=== PATIENT | male | born 1940 | race Caucasian/White ===

== ENCOUNTER 2021-09-24 13:49 | Inpatient (IN) | payer OTHER ==
[~2021-09-24] VITALS: Ht 182.9 cm; Wt 74.8 kg
[2021-09-24 15:01] LABS: HEMATOCRIT 38.1 % (36.7-47.1); MEAN CORPUSCULAR HEMOGLOBIN 30.1 uug (23.8-33.4); MEAN CORPUSCULAR VOLUME 87.6 fL (73.0-96.2); PLATELET COUNT (AUTO) 215 K/uL (152-348)
[2021-09-24 15:27] LABS: CREATININE 1.1 mg/dL (0.6-1.3); POTASSIUM 3.5 mmol/L (3.5-5.1)
[2021-09-24 15:41] LABS: BILIRUBIN,DIRECT 0.5 mg/dL (0.0-0.2); BILIRUBIN,TOTAL 1.4 mg/dL (0.2-1.0)
[2021-09-24 16:56] LABS: *BILIRUBIN,URIN NEGATIVE (NEGATIVE); *BLOOD, URINE 2+ (NEGATIVE); *CLARITY,URINE CLEAR (CLEAR); *COLOR,URINE YELLOW (YELLOW); *KETONES,URINE TRACE (NEGATIVE); *UROBILINOGEN,URINE 0.2 E.U./dl (NORMAL); LEUKOCYTE ESTERASE ,URINE NEGATIVE (NEGATIVE); NITRITE, URINE NEGATIVE (NEGATIVE); PH,URINE 5.5 (5.0-8.0); UGLUCOSE 2+ (NEGATIVE)
[2021-09-24] MEDS ORDERED: VANCOMYCIN IV 1,000 MG in IV DEXTROSE 5% 250 ML IV ONE (17:00)
[2021-09-24] MEDS ORDERED: VANCOMYCIN IV 200 ML ONE (17:07)
[2021-09-24 18:46] LABS: BACTERIA,URINE NONE SEEN /HPF (NONE SEEN); RBC,URINE 0-3 /HPF (0-3); SQUAMOUS EPITHELIAL CELL,UR FEW /HPF (NONE SEEN); WBC,URINE 0-3 /HPF (0-3)
[2021-09-24] MEDS ORDERED: LORAZEPAM 2 MG/1 ML VIAL ONE (19:43)
[2021-09-24] MEDS ORDERED: KETAMINE HCL 500 MG/10 ML INJ IV ONE ×2 (19:45→20:15)
[2021-09-24] MEDS ORDERED: LORAZEPAM 2 MG/1 ML VIAL IV ONE (19:45)
[2021-09-24] MEDS ORDERED: KETAMINE HCL 500 MG/10 ML INJ ONE ×2 (20:09→20:25)
[2021-09-24] MEDS ORDERED: IV NORMAL SALINE 500 ML IV ONE (21:45)
[2021-09-24] MEDS ORDERED: PIPERACILLIN SODIUM/TAZOBACTAM 3.375 G in IV DEXTROSE 5% 50 ML IV ONE (21:45)
[2021-09-24] MEDS ORDERED: ACETAMINOPHEN 650 MG SUPP.RECT RC PRN (22:00)
[2021-09-24] MEDS ORDERED: PIPERACILLIN/TAZOBACTAM/D5W 50 ML IV ONE (22:06)
[2021-09-25 04:00] VITALS: BP 143/57
[2021-09-25] MEDS ORDERED: PIPERACILLIN/TAZOBACTAM/D5W 50 ML IV ONE (04:31)
[2021-09-25 04:58] VITALS: BP 143/57
[2021-09-25] MEDS ORDERED: PIPERACILLIN SODIUM/TAZOBACTAM 3.375 G in IV DEXTROSE 5% 50 ML IV SCH (06:00)
[2021-09-25] MEDS: IV D5W-0.45% NS +20 KCL 1,000 ML IV PRN (06:48)
[2021-09-25 06:52] LABS: HEMATOCRIT 36.7 % (36.7-47.1); MEAN CORPUSCULAR VOLUME 88.5 fL (73.0-96.2); PLATELET COUNT (AUTO) 188 K/uL (152-348)
[2021-09-25 07:19] LABS: BILIRUBIN,TOTAL 1.5 mg/dL (0.2-1.0); CREATININE 1.1 mg/dL (0.6-1.3); MAGNESIUM 1.9 mg/dL (1.8-2.4); PHOSPHOROUS 3.2 mg/dL (2.5-4.9); TOTAL PROTEIN, SERUM 7.2 g/dL (6.4-8.2)
[2021-09-25 07:20] LABS: POTASSIUM 2.8 mmol/L (3.5-5.1)
[2021-09-25 08:30] LABS: THYROID STIMULATING HORMONE 0.726 mIU/mL (0.358-3.740)
[2021-09-25] MEDS ORDERED: POTASSIUM CHLORIDE 20 MEQ POWDER PACKET GT ONE (08:30)
[2021-09-25] MEDS: PANTOPRAZOLE SODIUM 40 MG VIAL IV SCH (09:35)
[2021-09-25] MEDS: ENOXAPARIN SODIUM 40 MG/0.4 ML DISP.SYRIN SQ SCH (09:35)
[2021-09-25] MEDS: POTASSIUM CHLORIDE 50 ML IV SCH ×4 (09:37→13:33)
[2021-09-25] MEDS ORDERED: DEXTROSE 50% 50 ML DISP.SYRIN IV PRN (10:45)
[2021-09-25] MEDS: BLOOD SUGAR DIAGNOSTIC 1 EACH STRIP VI SCH ×3 (11:55→20:59)
[2021-09-25] MEDS: INSULIN REGULAR, HUMAN 300 UNIT/3 ML VIAL SQ PRN ×3 (11:59→21:04)
[2021-09-25 12:06] VITALS: BP 121/62
[2021-09-25] MEDS: METOPROLOL SUCCINATE XL 25 MG TAB.SR.24H PO SCH (13:19)
[2021-09-25] MEDS: PIPERACILLIN SODIUM/TAZOBACTAM 3.375 G in IV DEXTROSE 5% 50 ML IV SCH ×3 (14:34→23:18)
[2021-09-25] MEDS: VANCOMYCIN IV 1,250 MG in IV DEXTROSE 5% 250 ML IV SCH (15:04)
[2021-09-25 16:14] VITALS: BP 133/68
[2021-09-25 20:58] VITALS: BP 130/58
[2021-09-25] MEDS: ONDANSETRON 4 MG/2 ML VIAL IV PRN (22:36)
[2021-09-26 00:38] VITALS: BP 105/55
[2021-09-26] MEDS: PIPERACILLIN SODIUM/TAZOBACTAM 3.375 G in IV DEXTROSE 5% 50 ML IV SCH ×3 (05:43→17:32)
[2021-09-26] MEDS: BLOOD SUGAR DIAGNOSTIC 1 EACH STRIP VI SCH ×4 (05:53→20:36)
[2021-09-26 07:44] LABS: CREATININE 0.9 mg/dL (0.6-1.3); POTASSIUM 3.4 mmol/L (3.5-5.1)
[2021-09-26 08:38] VITALS: BP 103/53
[2021-09-26] MEDS: INSULIN REGULAR, HUMAN 300 UNIT/3 ML VIAL SQ PRN ×3 (08:59→16:42)
[2021-09-26] MEDS: PANTOPRAZOLE SODIUM 40 MG VIAL IV SCH (09:02)
[2021-09-26] MEDS: METOPROLOL SUCCINATE XL 25 MG TAB.SR.24H PO SCH (09:03)
[2021-09-26] MEDS: ENOXAPARIN SODIUM 40 MG/0.4 ML DISP.SYRIN SQ SCH (09:08)
[2021-09-26] MEDS ORDERED: POTASSIUM CHLORIDE 20 MEQ POWDER PACKET PO ONE (09:15)
[2021-09-26 11:04] LABS: HEMATOCRIT 32.7 % (36.7-47.1); MEAN CORPUSCULAR HEMOGLOBIN 30.8 uug (23.8-33.4); MEAN CORPUSCULAR VOLUME 88.7 fL (73.0-96.2); PLATELET COUNT (AUTO) 186 K/uL (152-348)
[2021-09-26] MEDS: VANCOMYCIN IV 1,250 MG in IV DEXTROSE 5% 250 ML IV SCH (11:47)
[2021-09-26 12:44] VITALS: BP 96/48
[2021-09-26] MEDS ORDERED: INSULIN REGULAR, HUMAN 300 UNITS/3 ML VIAL SQ PRN (13:30)
[2021-09-26] MEDS: IV D5W-0.45% NS +20 KCL 1,000 ML IV PRN (16:09)
[2021-09-26 18:02] VITALS: BP 104/50
[2021-09-26 20:05] VITALS: BP 133/58
[2021-09-26] MEDS ORDERED: INSULIN GLARGINE,HUM 300 UNITS/3 ML CARTRIDGE SQ SCH (21:00)
[2021-09-27] MEDS: PIPERACILLIN SODIUM/TAZOBACTAM 3.375 G in IV DEXTROSE 5% 50 ML IV SCH ×5 (00:13→23:10)
[2021-09-27 00:33] VITALS: BP 137/70
[2021-09-27 04:40] VITALS: BP 141/67
[2021-09-27] MEDS: PANTOPRAZOLE SODIUM 40 MG TABLET.DR PO SCH (05:28)
[2021-09-27] MEDS: BLOOD SUGAR DIAGNOSTIC 1 EACH STRIP VI SCH ×4 (05:33→20:55)
[2021-09-27] MEDS: VANCOMYCIN IV 1,250 MG in IV DEXTROSE 5% 250 ML IV SCH (06:06)
[2021-09-27 07:15] LABS: CREATININE 0.9 mg/dL (0.6-1.3); POTASSIUM 3.8 mmol/L (3.5-5.1)
[2021-09-27] MEDS: METOPROLOL SUCCINATE XL 25 MG TAB.SR.24H PO SCH (08:18)
[2021-09-27] MEDS: ENOXAPARIN SODIUM 40 MG/0.4 ML DISP.SYRIN SQ SCH (08:19)
[2021-09-27] MEDS: INSULIN REGULAR, HUMAN 300 UNIT/3 ML VIAL SQ PRN ×3 (08:20→17:09)
[2021-09-27] MEDS ORDERED: LATA2.5D2 EACHEYE (10:31)
[2021-09-27] MEDS ORDERED: GLIM4TAB PO (10:31)
[2021-09-27] MEDS ORDERED: FAMO40TA71 PO (10:31)
[2021-09-27] MEDS ORDERED: DORZ10DR13 EACHEYE (10:31)
[2021-09-27] MEDS ORDERED: BUME2TAB7 PO (10:31)
[2021-09-27] MEDS ORDERED: MELA3TAB41 PO (10:33)
[2021-09-27] MEDS ORDERED: POTA-194 PO (10:33)
[2021-09-27] MEDS ORDERED: METF-442 PO (10:33)
[2021-09-27] MEDS ORDERED: DABI150C PO (10:33)
[2021-09-27] MEDS ORDERED: MULT-24 PO (10:34)
[2021-09-27] MEDS ORDERED: LOVA40TA2 PO (10:38)
[2021-09-27 12:04] VITALS: BP 131/65
[2021-09-27] MEDS: IV D5W-0.45% NS +20 KCL 1,000 ML IV PRN (15:16)
[2021-09-27] MEDS ORDERED: DABIGATRAN ETEXILATE MESYLATE 150 MG CAPSULE PO SCH (17:00)
[2021-09-27] MEDS: NUTRISOURCE FIBER 4 GM PACKET PO SCH (17:10)
[2021-09-27] MEDS: DORZOLAMIDE/TIMOLOL OPHT DROP 10 ML BOTTLE EACHEYE SCH (17:10)
[2021-09-27 17:16] VITALS: BP 142/66
[2021-09-27] MEDS: MELATONIN 3 MG TABLET PO SCH (20:51)
[2021-09-27] MEDS: ATORVASTATIN 10 MG TABLET PO SCH (20:51)
[2021-09-27] MEDS: LATANOPROST OPHT DROP 2.5 ML BOTTLE EACHEYE SCH (20:51)
[2021-09-27 20:55] VITALS: BP 132/57
[2021-09-27] MEDS: INSULIN REGULAR, HUMAN 300 UNITS/3 ML VIAL SQ PRN (20:57)
[2021-09-27] MEDS: INSULIN GLARGINE,HUM 300 UNITS/3 ML CARTRIDGE SQ SCH (20:58)
[2021-09-28 00:21] VITALS: BP 129/60
[2021-09-28] MEDS: VANCOMYCIN IV 1,250 MG in IV DEXTROSE 5% 250 ML IV SCH (03:18)
[2021-09-28 04:59] VITALS: BP 138/51
[2021-09-28] MEDS: PIPERACILLIN SODIUM/TAZOBACTAM 3.375 G in IV DEXTROSE 5% 50 ML IV SCH ×2 (05:43→12:06)
[2021-09-28] MEDS: BLOOD SUGAR DIAGNOSTIC 1 EACH STRIP VI SCH ×4 (05:43→21:15)
[2021-09-28] MEDS: PANTOPRAZOLE SODIUM 40 MG TABLET.DR PO SCH (05:48)
[2021-09-28 07:02] LABS: HEMATOCRIT 33.8 % (36.7-47.1); MEAN CORPUSCULAR HEMOGLOBIN 30.2 uug (23.8-33.4); MEAN CORPUSCULAR VOLUME 87.4 fL (73.0-96.2); PLATELET COUNT (AUTO) 187 K/uL (152-348)
[2021-09-28 07:51] LABS: CREATININE 0.8 mg/dL (0.6-1.3); MAGNESIUM 2.2 mg/dL (1.8-2.4); PHOSPHOROUS 2.6 mg/dL (2.5-4.9); POTASSIUM 3.7 mmol/L (3.5-5.1)
[2021-09-28] MEDS: MULTIVITAMINS,THERAPEUTIC TABLET PO SCH (08:55)
[2021-09-28] MEDS: INSULIN REGULAR, HUMAN 300 UNIT/3 ML VIAL SQ PRN ×3 (08:58→16:35)
[2021-09-28] MEDS: METOPROLOL SUCCINATE XL 25 MG TAB.SR.24H PO SCH (08:59)
[2021-09-28] MEDS: DABIGATRAN ETEXILATE MESYLATE 150 MG CAPSULE PO SCH ×2 (09:01→16:38)
[2021-09-28] MEDS: NUTRISOURCE FIBER 4 GM PACKET PO SCH ×2 (09:02→16:39)
[2021-09-28] MEDS: DORZOLAMIDE/TIMOLOL OPHT DROP 10 ML BOTTLE EACHEYE SCH ×2 (09:04→16:34)
[2021-09-28 12:00] VITALS: BP 134/78
[2021-09-28] MEDS: CEFAZOLIN 2 G in IV DEXTROSE 5% 100 ML IV SCH ×2 (15:22→23:29)
[2021-09-28 16:00] VITALS: BP 145/59
[2021-09-28 21:07] VITALS: BP 132/52
[2021-09-28] MEDS: INSULIN GLARGINE,HUM 300 UNITS/3 ML CARTRIDGE SQ SCH (21:20)
[2021-09-28] MEDS: INSULIN REGULAR, HUMAN 300 UNITS/3 ML VIAL SQ PRN (21:22)
[2021-09-28] MEDS: MELATONIN 3 MG TABLET PO SCH (21:23)
[2021-09-28] MEDS: ATORVASTATIN 10 MG TABLET PO SCH (21:23)
[2021-09-28] MEDS: LATANOPROST OPHT DROP 2.5 ML BOTTLE EACHEYE SCH (21:23)
[2021-09-28] MEDS: ONDANSETRON 4 MG/2 ML VIAL IV PRN (23:47)
[2021-09-29 00:28] VITALS: BP_SYST 106; BP_SYST 132; BP_DIAS 49; BP_DIAS 66
[2021-09-29 05:00] VITALS: BP 118/51
[2021-09-29 06:18] LABS: HEMATOCRIT 33.4 % (36.7-47.1); MEAN CORPUSCULAR HEMOGLOBIN 30.3 uug (23.8-33.4); MEAN CORPUSCULAR VOLUME 88.1 fL (73.0-96.2); PLATELET COUNT (AUTO) 197 K/uL (152-348)
[2021-09-29 06:32] LABS: CREATININE 0.8 mg/dL (0.6-1.3); POTASSIUM 3.9 mmol/L (3.5-5.1)
[2021-09-29 06:34] LABS: MAGNESIUM 2.2 mg/dL (1.8-2.4); PHOSPHOROUS 3.1 mg/dL (2.5-4.9)
[2021-09-29] MEDS: PANTOPRAZOLE SODIUM 40 MG TABLET.DR PO SCH (06:54)
[2021-09-29] MEDS: BLOOD SUGAR DIAGNOSTIC 1 EACH STRIP VI SCH ×4 (07:11→21:19)
[2021-09-29] MEDS: CEFAZOLIN 2 G in IV DEXTROSE 5% 100 ML IV SCH ×3 (07:32→23:31)
[2021-09-29] MEDS: MULTIVITAMINS,THERAPEUTIC TABLET PO SCH (09:16)
[2021-09-29] MEDS: METOPROLOL SUCCINATE XL 25 MG TAB.SR.24H PO SCH (09:24)
[2021-09-29] MEDS: NUTRISOURCE FIBER 4 GM PACKET PO SCH ×2 (09:26→16:55)
[2021-09-29] MEDS: DORZOLAMIDE/TIMOLOL OPHT DROP 10 ML BOTTLE EACHEYE SCH ×2 (09:26→16:41)
[2021-09-29] MEDS: DABIGATRAN ETEXILATE MESYLATE 150 MG CAPSULE PO SCH ×2 (09:26→16:44)
[2021-09-29] MEDS: INSULIN REGULAR, HUMAN 300 UNIT/3 ML VIAL SQ PRN ×3 (09:28→16:39)
[2021-09-29 12:00] VITALS: BP 141/59
[2021-09-29 16:00] VITALS: BP 149/71
[2021-09-29 20:31] VITALS: BP 124/50
[2021-09-29] MEDS: MELATONIN 3 MG TABLET PO SCH (21:15)
[2021-09-29] MEDS: LATANOPROST OPHT DROP 2.5 ML BOTTLE EACHEYE SCH (21:15)
[2021-09-29] MEDS: ATORVASTATIN 10 MG TABLET PO SCH (21:15)
[2021-09-29] MEDS: INSULIN REGULAR, HUMAN 300 UNITS/3 ML VIAL SQ PRN (21:28)
[2021-09-30 04:28] VITALS: BP 148/58
[2021-09-30] MEDS: CEFAZOLIN 2 G in IV DEXTROSE 5% 100 ML IV SCH (06:03)
[2021-09-30] MEDS: PANTOPRAZOLE SODIUM 40 MG TABLET.DR PO SCH (06:04)
[2021-09-30] MEDS: BLOOD SUGAR DIAGNOSTIC 1 EACH STRIP VI SCH ×2 (06:30→11:34)
[2021-09-30] MEDS: MULTIVITAMINS,THERAPEUTIC TABLET PO SCH (09:00)
[2021-09-30] MEDS: METOPROLOL SUCCINATE XL 25 MG TAB.SR.24H PO SCH (09:07)
[2021-09-30] MEDS: DORZOLAMIDE/TIMOLOL OPHT DROP 10 ML BOTTLE EACHEYE SCH (09:08)
[2021-09-30] MEDS: DABIGATRAN ETEXILATE MESYLATE 150 MG CAPSULE PO SCH (09:08)
[2021-09-30] MEDS: NUTRISOURCE FIBER 4 GM PACKET PO SCH (09:08)
[2021-09-30] MEDS ORDERED: INSULIN GLARGINE,HUM 300 UNITS/3 ML CARTRIDGE SQ SCH (10:00)
[2021-09-30 11:00] VITALS: BP 163/71
[2021-09-30] MEDS ORDERED: METO-356 PO (11:50)
[2021-09-30] MEDS ORDERED: CEPH500C2 PO (11:50)
[2021-09-30] MEDS ORDERED: Insulin Glargine,Hum SQ (11:50)
[2021-09-30] MEDS ORDERED: NUTRISOURCE FIBER 4 GM PACKET PO SCH (13:00)
== END 2021-09-30 15:13 | disposition home health service (06) | DRG 871 ==
LOC: ER 13:49 → TRANSITION 22:29 → TELE3 09-25 02:13 → MEDSURG3 09-28 11:10
PROVIDERS: ADMIT Nurse Practitioner Family; ATTEND Nurse Practitioner Acute Care
PROC: 05HC33Z Insertion of Infusion Device into Left Basilic Vein, Percutaneous Approach (ICD-10-PCS; principal; 2021-09-25)
PROC: 0HTRXZZ Resection of Toe Nail, External Approach (ICD-10-PCS; 2021-09-25)
DX: A41.9 Sepsis, unspecified organism (principal); G93.41 Metabolic encephalopathy; I21.4 Non-ST elevation (NSTEMI) myocardial infarction; L03.115 Cellulitis of right lower limb; L03.116 Cellulitis of left lower limb; D68.9 Coagulation defect, unspecified; I47.2 Ventricular tachycardia; I50.32 Chronic diastolic (congestive) heart failure; E11.65 Type 2 diabetes mellitus with hyperglycemia; B35.1 Tinea unguium; E11.42 Type 2 diabetes mellitus with diabetic polyneuropathy; B95.61 Methicillin susceptible Staphylococcus aureus infection as the cause of diseases classified elsewhere; B96.89 Other specified bacterial agents as the cause of diseases classified elsewhere; E87.6 Hypokalemia; F03.90 Unspecified dementia, unspecified severity, without behavioral disturbance, psychotic disturbance, mood disturbance, and anxiety; Z89.421 Acquired absence of other right toe(s); I11.0 Hypertensive heart disease with heart failure; I27.20 Pulmonary hypertension, unspecified; I35.0 Nonrheumatic aortic (valve) stenosis; I48.0 Paroxysmal atrial fibrillation; L60.1 Onycholysis; M20.42 Other hammer toe(s) (acquired), left foot; M20.41 Other hammer toe(s) (acquired), right foot; Z79.01 Long term (current) use of anticoagulants; Z79.84 Long term (current) use of oral hypoglycemic drugs
CPT/HCPCS: 36415; 70030-TC; 70450; 71045; 83605; 83735; 84100; 84443; 85025; 85651; 85730; 86140; 87040; 87070; 87077; 87086; 93005; 93307; A4663; C1758; C9113; G0378; J0690; J1650; J1815; J2060; J2405; J2543; J3370; J3480; J3490; J7030; J7060

== ENCOUNTER 2022-04-12 17:34 | Emergency (ER) | payer OTHER ==
[~2022-04-12] VITALS: Ht 172.7 cm; Wt 77.1 kg
[~2022-04-12 17:34] MED LIST: BUME2TAB7 PO; CEPH500C2 PO; DABI150C PO; DORZ10DR13 EACHEYE; FAMO40TA71 PO; Insulin Glargine,Hum SQ; LATA2.5D2 EACHEYE; LOVA40TA2 PO; MELA3TAB41 PO; METF-442 PO; METO-356 PO; MULT-24 PO; POTA-194 PO
[2022-04-12 18:45] LABS: HEMATOCRIT 33.4 % (36.7-47.1); MEAN CORPUSCULAR HEMOGLOBIN 25.7 uug (23.8-33.4); MEAN CORPUSCULAR VOLUME 79.8 fL (73.0-96.2); PLATELET COUNT (AUTO) 320 K/uL (152-348)
[2022-04-12 18:49] LABS: CREATININE 0.8 mg/dL (0.6-1.3); POTASSIUM 3.8 mmol/L (3.5-5.1)
[2022-04-12 19:00] LABS: BILIRUBIN,TOTAL 0.7 mg/dL (0.2-1.0); TOTAL PROTEIN, SERUM 6.6 g/dL (6.4-8.2)
[2022-04-12] MEDS ORDERED: LIDOCAINE 2% (GLYDO= UROJET) 10 ML JELLY MM ONE ×2 (19:25→19:30)
[2022-04-12] MEDS ORDERED: FUROSEMIDE 20 MG/2 ML VIAL IV ONE (19:30)
[2022-04-12] MEDS ORDERED: CEFTRIAXONE 1 G in IV DEXTROSE 5% 50 ML IV ONE (19:30)
[2022-04-12] MEDS ORDERED: ASPIRIN 81 MG TAB.CHEW PO ONE (19:30)
[2022-04-12] MEDS ORDERED: AZITHROMYCIN 250 MG TABLET PO ONE (19:30)
--- NOTE | 2022-04-12 20:24 | NUR ---
Dr. Herring spoke with [facility] and he states they are looking for a bed for the pt for a transfer.
--- NOTE | 2022-04-12 20:55 | NUR ---
attempted to place a urinary catheter it was unsuccessful I informed the er md. unable to place unable to locate the urinary meatus.
[2022-04-12] MEDS ORDERED: CEFTRIAXONE /D5W 50ML IVPB **ER PYXIS IV ONE (20:58)
[2022-04-12] MEDS ORDERED: AZITHROMYCIN 250 MG TABLET ONE (20:59)
[2022-04-12] MEDS ORDERED: FUROSEMIDE 20 MG/2 ML VIAL ONE (20:59)
[2022-04-12] MEDS ORDERED: ASPIRIN EC 81 MG TABLET.DR PO ONE (20:59)
[2022-04-12] MEDS ORDERED: ASPIRIN 81 MG TAB.CHEW ONE (21:07)
--- NOTE | 2022-04-12 22:24 | NUR ---
spoke with Med at [facility] states the pt is accepted at [place] we are awaiting a bed assignment. Accepting drClement is Oswald Reeves
--- NOTE | 2022-04-12 22:52 | NUR ---
pt diaper was changed, pt was saturated with urine. unable to place a urinary catheter.
--- NOTE | 2022-04-12 23:09 | NUR ---
[facility] will be going to [facility] room 2A 5316B. Accepting MD is Radha Reed. Call for report is . [facility] ETA is [id number].
--- NOTE | 2022-04-12 23:36 | NUR ---
[facility] ambulance here for the pt. report was given to Paz. of [facility] ambulance rig [id number].
--- NOTE | 2022-04-12 23:44 | NUR ---
report given to Rufina ANAND pt to go to [facility] room 5308B.
--- NOTE | 2022-04-12 23:46 | NUR ---
called and spoke with Jose Gipson and left a message that the pt is being moved to [facility].
--- NOTE | 2022-04-12 23:55 | NUR ---
pt left with [facility] ambulance to [facility].
== END 2022-04-13 00:28 | disposition short-term general hospital (02) ==
LOC: ER 17:36
DX: R55 Syncope and collapse (principal); I50.9 Heart failure, unspecified; E11.9 Type 2 diabetes mellitus without complications; S00.81XA Abrasion of other part of head, initial encounter; X58.XXXA Exposure to other specified factors, initial encounter; Y92.099 Unspecified place in other non-institutional residence as the place of occurrence of the external cause; I48.91 Unspecified atrial fibrillation; Z79.02 Long term (current) use of antithrombotics/antiplatelets; Z20.822 Contact with and (suspected) exposure to COVID-19; D64.9 Anemia, unspecified; M50.30 Other cervical disc degeneration, unspecified cervical region; Z79.4 Long term (current) use of insulin; Z79.84 Long term (current) use of oral hypoglycemic drugs; Z79.899 Other long term (current) drug therapy
CPT/HCPCS: 99285; 70450; 96365; 71045; 96375; 87426; 80053; 83880; 85025; 86850; 86900; 86901; 84484 ×2; 36415; 93005; 72125; 83605; J0696; J1940; A4663; C1758; Q0144